=== PATIENT | female | born 1970 | race Caucasian/White ===

== ENCOUNTER 2019-12-02 16:02 | Emergency (ER) | payer BC ==
[2019-12-02] MEDS ORDERED: Oseltamivir 75 MG Cap PO ONE (18:53)
[2019-12-02] MEDS ORDERED: Albuterol/Ipratropium 3.0-0.5 MG/3 ML Neb Soln NEB ONE (18:56)
[2019-12-02] MEDS ORDERED: Benzonatate 100 MG Cap PO ONE (18:56)
[2019-12-02] MEDS ORDERED: predniSONE 20 MG Tab PO ONE (19:18)
--- NOTE | 2019-12-03 03:42 | EDM.PDOC ---
Scribed by Stacie Newman 12/02/19 1920 for Ashli Morris PA-C ED HPI GENERAL MEDICAL PROBLEM - General Chief Complaint: Fever Stated Complaint: COUGH/FEVER/HEAD HURTS Time Seen by Provider: 12/02/19 19:00 Source of Information: Reports: Patient History Limitations: Reports: No Limitations - History of Present Illness INITIAL COMMENTS - FREE TEXT/NARRATIVE: C/O fever chills cough body aches today, slight cough last night . No nausea or vomiting. No diarrhea - Related Data Allergies Allergy/AdvReac Type Severity Reaction Status Date / Time ampicillin Allergy Nausea and Verified 12/02/19 17:34 Vomiting erythromycin base Allergy Muscle Verified 12/02/19 17:34 [Erythromycin Base] Aches Penicillins Allergy Anaphylactic Verified 12/02/19 17:34 Shock Home Meds: Home Meds Ondansetron [Zofran ODT] 4 mg PO Q6H PRN #20 tab 12/11/13 [Rx] Albuterol [Proventil HFA] 2 puff INH QID PRN 07/19/14 [History] Aspirin [Halfprin] 07/19/14 [History] Fluconazole [Diflucan] 1 tab PO DAILY 07/19/14 [History] glyBURIDE [Glyburide] 07/19/14 [History] lisinopriL [Prinivil] 07/19/14 [History] metFORMIN [Glucophage] 1 tab PO BID 07/19/14 [History] Past Medical History Cardiovascular History: Reports: High Cholesterol, Hypertension Respiratory History: Reports: COPD Endocrine/Metabolic History: Reports: Diabetes, Type II Social & Family History - Tobacco Use Smoking Status *Q: Current Every Day Smoker Years of Tobacco use: 30 Packs/Tins Daily: 0.5 - Caffeine Use Caffeine Use: Reports: Coffee - Recreational Drug Use Recreational Drug Use: No ED ROS ENT - Review of Systems Review Of Systems: Comprehensive ROS is negative, except as noted in HPI. ED EXAM, ENT - Physical Exam Exam: See Below Exam Limited By: No Limitations General Appearance: Alert, Mild Distress Eye Exam: Bilateral Eye: EOMI Ears: Normal External Exam, Hearing Grossly Normal, Normal TMs Nose: Normal Inspection Mouth/Throat: Normal Inspection Head: Atraumatic, Normocephalic Neck: Normal Inspection Respiratory/Chest: No Respiratory Distress, Wheezing (coarse bilateral throughout) Cardiovascular: Normal Peripheral Pulses, Regular Rate, Rhythm GI/Abdominal: Normal Bowel Sounds, Soft Rectal (Female) Exam: Normal Exam Back: Normal Inspection, Full Range of Motion Neurological: Alert, Oriented Psychiatric: Normal Affect, Normal Mood Skin: Warm, Dry, Intact, Normal Color Course - Vital Signs Last Recorded V/S: Last Vital Signs Temp 100.3 F 12/02/19 17:28 Pulse 122 H 12/02/19 17:28 Resp 20 12/02/19 17:28 BP 154/54 H 12/02/19 17:28 Pulse Ox 94 L 12/02/19 17:28 - Orders/Labs/Meds Orders: Active Orders 24 hr Category Date Time Status RT Aerosol Therapy [RC] ASDIRECTED Care 12/02/19 18:56 Active Chest 2V [CR] Urgent Exams 12/02/19 17:35 Taken CULTURE STREP A CONFIRMATION [RM] Stat Lab 12/02/19 17:18 Results STREP SCRN A RAPID W CULT CONF [RM] Stat Lab 12/02/19 17:18 Results Meds: Medications Discontinued Medications Generic Name Dose Route Start Last Admin Trade Name Jessy PRN Reason Stop Dose Admin Albuterol/Ipratropium 3 ml 12/02/19 18:56 12/02/19 19:09 Duoneb 3.0-0.5 Mg/3 Ml NEB 12/02/19 18:57 3 ml ONETIME ONE Administration Benzonatate 200 mg 12/02/19 18:56 12/02/19 19:09 Tessalon Perles PO 12/02/19 18:57 200 mg ONETIME ONE Administration Oseltamivir Phosphate 75 mg 12/02/19 18:53 12/02/19 19:09 Tamiflu PO 12/02/19 18:54 75 mg ONETIME ONE Administration Prednisone 20 mg 12/02/19 19:18 12/02/19 19:23 Prednisone PO 12/02/19 19:19 20 mg ONETIME ONE Administration - Radiology Interpretation Free Text/Narrative:: CXR no pneumonia Departure - Departure Time of Disposition: :20 Disposition: Home, Self-Care 01 Condition: Good Clinical Impression: Influenza - Discharge Information *PRESCRIPTION DRUG MONITORING PROGRAM REVIEWED*: No *COPY OF PRESCRIPTION DRUG MONITORING REPORT IN PATIENT RAJAT: No Instructions: Influenza, Adult Forms: ED Department Discharge Additional Instructions: humidification alternate tylenol and ibuprofen every 4 hours as needed for fever/ body aches tessalon 200mg one every 8 hours as needed for cough prednisone 20mg one daily x 3 days one - half daily x 3 days albuterol inhaler 2 puffs every 4 hours as needed for cough/ wheeze tamiflu 75mg one twice daily for 5 days decrease smoking monitor blood sugars take insulin as directed increase fluids good hand washing, avoid persons with poor immune systems, young and old. Sepsis Event Note - Evaluation Sepsis Screening Result: No Definite Risk - Focused Exam Vital Signs: Vital Signs Temp Pulse Resp BP Pulse Ox 12/02/19 17:28 100.3 F 122 H 20 154/54 H 94 L Date Exam was Performed: 12/03/19 Time Exam was Performed: 03:41 - My Orders Last 24 Hours: My Active Orders 12/02/19 18:56 RT Aerosol Therapy [RC] ASDIRECTED - Assessment/Plan Last 24 Hours: My Active Orders 12/02/19 18:56 RT Aerosol Therapy [RC] ASDIRECTED I have read and agree with the documentation that has been completed regarding this visit. By signing this record, I attest that the documentation was completed in my physical presence and is an accurate record of the encounter.
== END 2019-12-02 19:30 | disposition home or self-care (01) ==
LOC: DL.ED 16:02
DX: J11.1 Influenza due to unidentified influenza virus with other respiratory manifestations (principal); I10 Essential (primary) hypertension; E11.9 Type 2 diabetes mellitus without complications; J45.909 Unspecified asthma, uncomplicated; F17.210 Nicotine dependence, cigarettes, uncomplicated; Z79.84 Long term (current) use of oral hypoglycemic drugs; Z79.899 Other long term (current) drug therapy; Z79.82 Long term (current) use of aspirin; Z88.0 Allergy status to penicillin; Z88.1 Allergy status to other antibiotic agents
CPT/HCPCS: 71046; 87081; 87430; 87804; 99284; A9270; J7620-GY

== ENCOUNTER 2022-11-27 17:38 | Emergency (ER) | payer BC, OTHER ==
[2022-11-27 19:11] LABS: CORONAVIRUS COVID-19 NAA NEGATIVE (NEGATIVE); RESPIRATORY SYNCYTIAL VIR NAA POSITIVE (NEGATIVE)
[2022-11-27] MEDS ORDERED: methylPREDNISolone Sodium Succinate 125 MG/2 ML SDV IM ONE (20:01)
[2022-11-27] MEDS ORDERED: Albuterol 6.7 GM Inhaler INH ONE (20:08)
[2022-11-27] MEDS ORDERED: methylPREDNISolone Sodium Succinate 125 MG/2 ML SDV IVPUSH ONE (20:10)
== END 2022-11-27 20:29 | disposition home or self-care (01) ==
LOC: DL.ED 17:38
DX: R05.9 Cough, unspecified (principal); B97.4 Respiratory syncytial virus as the cause of diseases classified elsewhere; E78.00 Pure hypercholesterolemia, unspecified; I10 Essential (primary) hypertension; J44.9 Chronic obstructive pulmonary disease, unspecified; E11.9 Type 2 diabetes mellitus without complications; Z88.0 Allergy status to penicillin; Z88.1 Allergy status to other antibiotic agents; Z79.4 Long term (current) use of insulin; Z79.899 Other long term (current) drug therapy; Z87.891 Personal history of nicotine dependence; Z20.822 Contact with and (suspected) exposure to COVID-19
CPT/HCPCS: 0241U; 36415; 71045; 81003; 85025; 96372; 99285; A9270; J2930

== ENCOUNTER 2024-06-12 06:31 | Day surgery (SDC) | payer BC, OTHER ==
[~2024-06-12 06:31] MED LIST: Dextrose 5%-0.45% NaCl 1,000 ML IV SCH; Midazolam 1 MG/ML 2 ML SDV ONE; fentaNYL 100 MCG/2 ML SDV ONE
[2024-06-12] MEDS ORDERED: Midazolam 1 MG/ML 2 ML SDV IV ONE (06:32)
[2024-06-12] MEDS ORDERED: fentaNYL 100 MCG/2 ML SDV IV ONE (06:32)
[2024-06-12] MEDS: Dextrose 5%-0.45% NaCl 1,000 ML IV SCH (07:16)
[2024-06-12] MEDS: fentaNYL 100 MCG/2 ML SDV IV ONE ×4 (07:26→07:36)
[2024-06-12] MEDS: Midazolam 1 MG/ML 2 ML SDV IV ONE ×6 (07:27→07:34)
== END 2024-06-12 09:30 | disposition home or self-care (01) ==
LOC: DL.ENDO 06:31
PROVIDERS: ATTEND Internal Medicine Gastroenterology
DX: K52.9 Noninfective gastroenteritis and colitis, unspecified (principal); E11.9 Type 2 diabetes mellitus without complications; I10 Essential (primary) hypertension; E78.5 Hyperlipidemia, unspecified; J44.9 Chronic obstructive pulmonary disease, unspecified; E66.01 Morbid (severe) obesity due to excess calories; Z68.42 Body mass index [BMI] 45.0-49.9, adult; Z87.891 Personal history of nicotine dependence; Z88.0 Allergy status to penicillin; Z88.1 Allergy status to other antibiotic agents
CPT/HCPCS: 45380; J2250; J3010; J7799

== ENCOUNTER 2024-08-09 16:13 | Emergency (ER) | payer BC, OTHER ==
[2024-08-09] MEDS ORDERED: Glucagon,Human Recombinant 1 MG Vial IM PRN ×2 (16:36→18:42)
[2024-08-09] MEDS ORDERED: 50% Dextrose in Water 50 ML Syringe IVPUSH PRN ×2 (16:36→18:42)
[2024-08-09 16:44] LABS: O2 DELIVERY DEVICE ROOM AIR
[2024-08-09] MEDS: Sodium Chloride 0.9% 1,000 ML IV ONE ×2 (16:44→17:56)
[2024-08-09] MEDS: Sodium Chloride 0.9% 10 ML Syringe FLUSH PRN (16:44)
[2024-08-09] MEDS: Insulin Regular, Human 100 Units/ML 3 ML Vial IV ONE ×2 (16:44→19:11)
[2024-08-09 16:46] LABS: BASOPHILS PERCENT AUTO 0.8 % (0.0-1.0); EOSINOPHILS PERCENT AUTO 3.4 % (1.0-3.0); HEMOGLOBIN 13.6 g/dL (12.0-16.0); LYMPHOCYTES PERCENT AUTO 24.8 % (20.5-50.1); MEAN CORPUSCULAR HEMOGLOBIN 27.5 pg (27.0-34.0); MEAN CORPUSCULAR VOLUME 80.8 fL (80-100); MONOCYTES PERCENT AUTO 6.7 % (2-8); NEUTROPHILS PERCENT AUTO 64.3 % (42.2-75.2); PLATELET COUNT,PLT 382 10^3/uL (150-450); RED BLOOD CELL COUNT 4.95 10^6/uL (4.2-5.4)
[2024-08-09] MEDS: Iopamidol 612 MG/ML 100 ML Bottle IVPUSH ONE (16:50)
[2024-08-09 16:58] LABS: O2 SATURATION VENOUS 69.4 % (60-80); PCO2 VENOUS 45 mmHg (41-51); PO2 VENOUS 36 mmHg (35-42)
[2024-08-09 16:59] LABS: BICARBONATE,VENOUS 27 mmol/l (19-25)
[2024-08-09 17:07] LABS: A/G RATIO 0.7; ALANINE AMINOTRANSFERASE,ALT 21 U/L (14-59); ALBUMIN 3.4 g/dL (3.4-5.0); ALKALINE PHOSPHATASE 146 U/L (46-116); ANION GAP 14.6 mEq/L (7-13); ASPARTATE AMNIOTRANSFERASE,AST 11 U/L (15-37); BILIRUBIN TOTAL 0.2 mg/dL (0.2-1.0); BLOOD UREA NITROGEN,BUN 15 mg/dL (7-18); BUN/CREATININE RATIO 16.7 (No establ ref range); CALCIUM 9.3 mg/dL (8.5-10.1); CARBON DIOXIDE,CO2 28 mmol/L (21-32); CHLORIDE,CL 98 mmol/L (98-107); EST CRCL DRUG DOSING (CG) 56.52 mL/min; GLUCOSE RANDOM 357 mg/dL (70-99); LIPASE 69 U/L (16-77); MAGNESIUM 1.6 mg/dL (1.8-2.4); POTASSIUM,K 4.6 mmol/L (3.5-5.1); PROTEIN TOTAL,TP 8.2 g/dL (6.4-8.2); SODIUM,NA 136 mmol/L (136-145)
[2024-08-09 17:08] LABS: ESTIMATED GFR 76 mL/min (>=60)
[2024-08-09 17:09] LABS: LACTIC ACID 2.2 mmol/L (0.4-2.0)
[2024-08-09 17:10] LABS: HCG QUALITATIVE,SERUM NEGATIVE (NEGATIVE); KETONES,BLOOD NEGATIVE
[2024-08-09 17:14] LABS: B-TYPE NATRIURETIC PEPTIDE,BNP 42 pg/ml (0-100)
[2024-08-09 17:41] LABS: APPEARANCE,URINE CLEAR (CLEAR); BILIRUBIN,URINE NEGATIVE (NEGATIVE); COLOR,URINE YELLOW (YELLOW); GLUCOSE,URINE >=1000 (NEGATIVE); KETONES,URINE NEGATIVE (NEGATIVE); LEUKOCYTE ESTERASE,URINE NEGATIVE (NEGATIVE); NITRITE,URINE NEGATIVE (NEGATIVE); OCCULT BLOOD,URINE NEGATIVE (NEGATIVE); PH,URINE 5.5 (5.0-9.0); PROTEIN,URINE TRACE (NEGATIVE); UROBILINOGEN,URINE 0.2 mg/dL (0.2-1.0)
[2024-08-09 17:49] LABS: AMORPHOUS SEDIMENT,URINE FEW /HPF (NOT SEEN); BACTERIA,URINE MODERATE /HPF (0-FEW/HPF); EPITHELIAL CELLS,URINE MODERATE /HPF (NOT SEEN); MUCUS,URINE FEW /LPF (NOT SEEN); RBC,URINE 0-5 /HPF (0-5); WBC,URINE 0-5 /HPF (0-5/HPF)
[2024-08-09] MEDS: Magnesium Sulfate/Water 2 GM in Premix Bag 1 BAG IV ONE (19:12)
== END 2024-08-09 20:19 ==
LOC: DL.ED 16:13
DX: K43.0 Incisional hernia with obstruction, without gangrene (principal); R11.2 Nausea with vomiting, unspecified; J44.9 Chronic obstructive pulmonary disease, unspecified; E11.9 Type 2 diabetes mellitus without complications; E78.00 Pure hypercholesterolemia, unspecified; I10 Essential (primary) hypertension; Z79.4 Long term (current) use of insulin; Z79.84 Long term (current) use of oral hypoglycemic drugs; Z79.899 Other long term (current) drug therapy; Z88.0 Allergy status to penicillin; Z88.1 Allergy status to other antibiotic agents
CPT/HCPCS: 36415; 71046; 71260; 74177; 80053; 81001; 82009; 82803; 82947; 83605; 83690; 83735; 83880; 84484; 84703; 85025; 85379; 87040; 93005; 93010; 96361; 96365; 96368; 99284; 99285-25; J1815-GY; J3475; J3490; J7030; Q9967

== ENCOUNTER 2025-02-01 05:20 | Day surgery (SDC) | payer BC, OTHER ==
[2025-02-01] MEDS: Dextrose 5%-0.45% NaCl 1,000 ML IV SCH (05:48)
[2025-02-01] MEDS ORDERED: Midazolam 1 MG/ML 2 ML SDV ONE (06:10)
[2025-02-01] MEDS ORDERED: fentaNYL 100 MCG/2 ML SDV IV ONE (06:10)
[2025-02-01] MEDS ORDERED: fentaNYL 100 MCG/2 ML SDV ONE (06:10)
[2025-02-01] MEDS ORDERED: Midazolam 1 MG/ML 2 ML SDV IV ONE (06:10)
[2025-02-01] MEDS: fentaNYL 100 MCG/2 ML SDV IV ONE ×2 (06:29)
[2025-02-01] MEDS: Midazolam 1 MG/ML 2 ML SDV IV ONE ×2 (06:30→06:31)
== END 2025-02-01 08:50 | disposition home or self-care (01) ==
LOC: DL.ENDO 05:20
PROVIDERS: ATTEND Internal Medicine Gastroenterology
DX: K29.50 Unspecified chronic gastritis without bleeding (principal); B96.81 Helicobacter pylori [H. pylori] as the cause of diseases classified elsewhere; K20.90 Esophagitis, unspecified without bleeding
CPT/HCPCS: 43239; J2250; J3010; J7799

== ENCOUNTER 2025-02-16 06:29 | Emergency (ER) | payer BC, OTHER ==
[2025-02-16] MEDS: Iopamidol 612 MG/ML 100 ML Bottle IVPUSH ONE (06:34)
[2025-02-16] MEDS: Sodium Chloride 0.9% 1,000 ML IV ONE (06:48)
[2025-02-16] MEDS: Morphine 4 MG/ML Syringe IVPUSH ONE (06:48)
[2025-02-16] MEDS: Ondansetron 4 MG/2 ML SDV IVPUSH ONE (06:48)
[2025-02-16 06:52] LABS: BASOPHILS PERCENT AUTO 0.5 % (0.0-1.0); EOSINOPHILS PERCENT AUTO 0.4 % (1.0-3.0); HEMATOCRIT 39.9 % (37.0-47.0); HEMOGLOBIN 13.1 g/dL (12.0-16.0); LYMPHOCYTES PERCENT AUTO 11.5 % (20.5-50.1); MEAN CORPUSCULAR HEMOGLOBIN 26.4 pg (27.0-34.0); MEAN CORPUSCULAR HGB CONC 32.8 g/dL (33.0-35.0); MEAN CORPUSCULAR VOLUME 80.4 fL (80-100); MONOCYTES PERCENT AUTO 4.7 % (2-8); NEUTROPHILS PERCENT AUTO 82.9 % (42.2-75.2); PLATELET COUNT,PLT 373 10^3/uL (150-450); RED BLOOD CELL COUNT 4.96 10^6/uL (4.2-5.4); WHITE BLOOD CELL COUNT,WBC 12.9 10^3/uL (5.0-10.0)
[2025-02-16 06:55] LABS: APPEARANCE,URINE CLEAR (CLEAR); BILIRUBIN,URINE NEGATIVE (NEGATIVE); COLOR,URINE YELLOW (YELLOW); GLUCOSE,URINE 500 (NEGATIVE); KETONES,URINE 80 (NEGATIVE); LEUKOCYTE ESTERASE,URINE NEGATIVE (NEGATIVE); NITRITE,URINE NEGATIVE (NEGATIVE); OCCULT BLOOD,URINE NEGATIVE (NEGATIVE); PROTEIN,URINE 100 (NEGATIVE); UROBILINOGEN,URINE 0.2 mg/dL (0.2-1.0)
[2025-02-16 07:13] LABS: LACTIC ACID 2.9 mmol/L (0.4-2.0)
[2025-02-16 07:18] LABS: A/G RATIO 0.7; ALANINE AMINOTRANSFERASE,ALT 19 U/L (14-59); ALBUMIN 3.7 g/dL (3.4-5.0); ALKALINE PHOSPHATASE 133 U/L (46-116); ANION GAP 19.1 mEq/L (7-13); ASPARTATE AMNIOTRANSFERASE,AST 15 U/L (15-37); BILIRUBIN TOTAL 0.5 mg/dL (0.2-1.0); BLOOD UREA NITROGEN,BUN 20 mg/dL (7-18); BUN/CREATININE RATIO 20.2 (No establ ref range); CALCIUM 10.3 mg/dL (8.5-10.1); CARBON DIOXIDE,CO2 26 mmol/L (21-32); CHLORIDE,CL 96 mmol/L (98-107); CREATININE 0.99 mg/dL (0.55-1.02); EST CRCL DRUG DOSING (CG) 51.38 mL/min; LIPASE 48 U/L (16-77); MAGNESIUM 1.4 mg/dL (1.8-2.4); POTASSIUM,K 4.1 mmol/L (3.5-5.1); PROTEIN TOTAL,TP 8.7 g/dL (6.4-8.2); SODIUM,NA 137 mmol/L (136-145)
[2025-02-16 07:22] LABS: ESTIMATED GFR 68 mL/min (>=60); ETHANOL BLOOD MEDICAL < 3 mg/dL (0); GLUCOSE RANDOM 473 mg/dL (70-99)
[2025-02-16 07:30] LABS: BACTERIA,URINE FEW /HPF (0-FEW/HPF); EPITHELIAL CELLS,URINE FEW /HPF (NOT SEEN); WBC,URINE 0-5 /HPF (0-5/HPF)
[2025-02-16] MEDS: Insulin Lispro 100 Units/ML 3 ML Vial SUBCUT ONE (07:51)
[2025-02-16] MEDS: Sodium Chloride 0.9% 1,000 ML IV SCH (08:54)
[2025-02-16] MEDS: Magnesium Sulf/Wat 2 GM/50 mL 2 GM in Premix Bag 1 BAG IV ONE (09:24)
[2025-02-16] MEDS: Lactated Ringers 1,000 ML IV SCH ×2 (10:37→13:26)
[2025-02-16] MEDS: Benzocaine 20% Topical Spray UD MUCMEM ONE (13:49)
== END 2025-02-16 13:51 ==
LOC: DL.ED 06:29
DX: K46.0 Unspecified abdominal hernia with obstruction, without gangrene (principal); E11.65 Type 2 diabetes mellitus with hyperglycemia; R74.02 Elevation of levels of lactic acid dehydrogenase [LDH]; I10 Essential (primary) hypertension; E78.00 Pure hypercholesterolemia, unspecified; J44.89 Other specified chronic obstructive pulmonary disease; Z88.1 Allergy status to other antibiotic agents; Z88.0 Allergy status to penicillin; Z79.4 Long term (current) use of insulin; Z79.84 Long term (current) use of oral hypoglycemic drugs; Z79.899 Other long term (current) drug therapy
CPT/HCPCS: 36415; 43752; 71045; 74018; 74177; 80053; 80307; 81001; 82947; 83605; 83690; 83735; 84484; 85025; 96361; 96365; 96366; 96375; 99285; J1815; J2270; J2405; J3475; J7030; J7120; Q9967; 99284